=== PATIENT | female | born 1985 | race African-American/Black ===

== ENCOUNTER 2022-07-14 13:46 | Emergency (ER) | payer MEDICAID ==
[~2022-07-14] VITALS: Ht 167.6 cm; Wt 90.0 kg
[2022-07-14] MEDS ORDERED: LIDOCAINE 5% PATCH TOP SCH (14:30)
[2022-07-14] MEDS ORDERED: KETOROLAC 30MG/ML VIAL IV ONE (14:30)
[2022-07-14 14:49] LABS: BASOPHILS % 0.7 % (0.0-2.0); EOSINOPHILS % 0.8 % (0.0-5.0); HEMATOCRIT. 34.6 % (36.0-48.0); HEMOGLOBIN. 11.3 g/dL (12.0-16.0); LYMPHOCYTES % 47.4 % (20.0-50.0); MEAN CORPUSCULAR HEMOGLOBIN 29.3 pg (28.0-32.0); MEAN CORPUSCULAR VOLUME 90.3 fL (81.0-99.0); MEAN PLATELET VOLUME 10.1 fl (7.4-10.4); MONOCYTES % 7.6 % (2.0-8.0); NEUTROPHILS % 43.5 % (40.0-76.0); PLATELET 247 x1000/uL (130-400); RED BLOOD CELL COUNT 3.83 mill/uL (4.2-5.4); RED CELL DISTRIBUTION WIDTH 16.5 % (11.6-14.6)
[2022-07-14 14:56] LABS: CHLORIDE 106 mEq/L (98-107)
[2022-07-14 14:58] LABS: PROTHROMBIN TIME 10.7 sec (9.6-11.0)
[2022-07-14 15:37] VITALS: BP 140/80
== END 2022-07-14 16:30 | disposition left against medical advice (07) ==
LOC: ER 13:46
DX: R07.9 Chest pain, unspecified (principal); F31.9 Bipolar disorder, unspecified; R00.0 Tachycardia, unspecified; F17.210 Nicotine dependence, cigarettes, uncomplicated
CPT/HCPCS: 36415; 71045; 80053; 81025; 84484; 85025; 85379; 85610; 93005; 96374; 99285; J1885

== ENCOUNTER 2022-07-20 16:48 | Emergency (ER) | payer MEDICAID ==
[~2022-07-20] VITALS: Ht 170.2 cm; Wt 103.0 kg
[2022-07-20 16:51] VITALS: BP 141/96
== END 2022-07-21 03:19 | disposition left against medical advice (07) ==
LOC: ER 16:48
DX: Z53.21 Procedure and treatment not carried out due to patient leaving prior to being seen by health care provider (principal); Z98.890 Other specified postprocedural states
CPT/HCPCS: 93005

== ENCOUNTER 2025-06-30 10:51 | Emergency (ER) | payer MEDICAID ==
[~2025-06-30] VITALS: Ht 172.7 cm; Wt 80.0 kg
[2025-06-30 10:53] VITALS: O2SAT 99
[2025-06-30] MEDS: HALOPERIDOL LACTATE 5MG/ML VIAL IM ONE (11:29)
[2025-06-30] MEDS: LORAZEPAM 2MG/ML UD SYRINGE IM SCH (11:29)
[2025-06-30 12:59] LABS: HCG SCREEN NEGATIVE
[2025-06-30 13:02] LABS: CREATININE 0.7 mg/dL (0.6-1.0); UREA NITROGEN BLOOD 8 mg/dL (9-23)
[2025-06-30 15:50] LABS: HEMATOCRIT. 34.6 % (36.0-48.0); HEMOGLOBIN. 11.4 g/dL (12.0-16.0); MEAN PLATELET VOLUME 11.8 fl (7.4-10.4); PLATELET 149 x1000/uL (130-400); RED BLOOD CELL COUNT 3.69 mill/uL (4.2-5.4); RED CELL DISTRIBUTION WIDTH 14.9 % (11.6-14.6)
[2025-06-30] MEDS: MAGNESIUM OXIDE 400MG TABLET PO SCH (15:59)
[2025-06-30] MEDS: POTASSIUM CHLORIDE 20MEQ TABLET SR PO ONE (15:59)
[2025-06-30 16:34] LABS: LYMPHOCYTES % MANUAL 51.0 % (20.0-60.0); MONOCYTES % MANUAL 13.0 % (2.0-8.0); NEUTROPHILS % MANUAL 36.0 % (45.0-75.0); PLATELET ESTIMATE NORMAL
[2025-06-30 21:01] LABS: CLARITY URINE CLEAR (CLEAR); COLOR URINE YELLOW (YELLOW); GLUCOSE URINE NEGATIVE (NEGATIVE); KETONES URINE 2+ (NEGATIVE); LEUKOCYTE ESTERASE URINE NEGATIVE (NEGATIVE); NITRITE URINE NEGATIVE (NEGATIVE); OCCULT BLOOD URINE NEGATIVE (NEGATIVE); PH URINE 6.0 (4.5-8.0); PROTEIN URINE NEGATIVE (NEGATIVE); SPECIFIC GRAVITY URINE 1.013 (1.005-1.030); UROBILINOGEN URINE 1.0 E.U./dL (0.2-1.0)
[2025-06-30 21:18] LABS: *AMPHETAMINES SCREEN URINE PRESUMPTIVE POSITIVE (NEGATIVE); *BARBITURATES SCREEN URINE NEGATIVE (NEGATIVE); *BENZODIAZEPINES SCREEN URINE NEGATIVE (NEGATIVE); *COCAINE SCREEN URINE PRESUMPTIVE POSITIVE (NEGATIVE); CANNABINOID URINE SCREEN PRESUMPTIVE POSITIVE (NEGATIVE); METHADONE URINE SCREEN NEGATIVE (NEGATIVE); OPIATES URINE SCREEN NEGATIVE (NEGATIVE); PHENCYCLIDINE URINE SCREEN PRESUMTIVE POSITIVE (NEGATIVE)
[2025-06-30 21:19] LABS: ECSTASY MDMA SCREEN URINE NEGATIVE (NEGATIVE)
[2025-06-30 23:42] LABS: CREATININE 0.8 mg/dL (0.6-1.0); UREA NITROGEN BLOOD 7 mg/dL (9-23)
[2025-07-01] MEDS: QUETIAPINE FUMARATE 50MG TABLET PO SCH (13:45)
[2025-07-01 13:47] VITALS: BP 135/74; PULSE 91; RESP 18; TEMP 36.8; O2SAT 99
== END 2025-07-01 13:53 ==
LOC: ER 10:51
DX: F29 Unspecified psychosis not due to a substance or known physiological condition (principal); F41.9 Anxiety disorder, unspecified; E87.6 Hypokalemia; Z79.899 Other long term (current) drug therapy; Z20.822 Contact with and (suspected) exposure to COVID-19
CPT/HCPCS: 80305; 80048; 81003; 80307; 80329; 80320; 84703; 85025; 36415; 96372; 99285; 87426; J1630; J2060; Z7610; G0480